=== PATIENT | female | born 2000 | race Caucasian/White ===

== ENCOUNTER 2020-05-23 22:19 | Emergency (ER) | payer SELFPAY ==
[~2020-05-23] VITALS: Ht 167.6 cm; Wt 76.4 kg
[2020-05-23 22:20] VITALS: BP 141/69
== END 2020-05-23 22:59 | disposition left against medical advice (07) ==
LOC: M ED 22:19
DX: Z53.21 Procedure and treatment not carried out due to patient leaving prior to being seen by health care provider (principal)

== ENCOUNTER 2020-06-22 15:29 | Emergency (ER) | payer OTHER, SELFPAY ==
[~2020-06-22] VITALS: Ht 167.6 cm; Wt 75.2 kg
[2020-06-22] MEDS ORDERED: TOPA1TAB PO (15:39)
[2020-06-22] MEDS ORDERED: LORA-930 PO (15:39)
[2020-06-22] MEDS ORDERED: PANT20TA6 PO (15:40)
[2020-06-22 16:13] LABS: BASO % 0.5 % (0.0-1.0); EOS % 0.5 % (0.0-3.0); HEMATOCRIT 42.2 % (36.0-47.0); HEMOGLOBIN 13.5 g/dl (12.0-15.5); LYMPH # 1.8 10^3/uL (1.5-5.0); LYMPH % 23.2 % (24.0-44.0); MEAN CORPUSCULAR HEMOGLOBIN 30.4 pg (27.0-33.0); MONO # 0.6 10^3/uL (0.0-0.8); MONO % 7.7 % (2.0-8.0); NEUTROPHILS # 5.2 10^3/uL (1.5-8.5); NEUTROPHILS % 67.8 % (36.0-66.0); PLATELET COUNT, AUTOMATED 271 10^3/uL (150-450); RED BLOOD COUNT 4.44 10^6/uL (4.00-5.40); WHITE BLOOD COUNT 7.7 10^3/uL (4.0-10.0)
[2020-06-22 16:30] LABS: ERYTHROCYTE SEDIMENTATION RATE 12 mm/hr (0-20)
[2020-06-22 16:34] LABS: BLOOD UREA NITROGEN 8 MG/DL (7-18); CALCIUM LEVEL 8.8 MG/DL (8.5-10.1); CARBON DIOXIDE LEVEL 22 MEQ/L (21-32); CHLORIDE LEVEL 114 MEQ/L (98-107); CREATININE FOR GFR 0.87 MG/DL (0.55-1.30); GLUCOSE, FASTING 82 MG/DL (70-100); SODIUM LEVEL 142 MEQ/L (136-145)
[2020-06-22] MEDS ORDERED: METOCLOPRAMIDE INJ 10MG/2ML VIAL (J2765 PER 1) IV ONE (17:15)
[2020-06-22] MEDS ORDERED: KETOROLAC 30 MG/ML 1ML VIAL IV ONE (17:15)
[2020-06-22] MEDS ORDERED: ACETAMINOPHEN 325 MG TAB PO ONE (17:15)
[2020-06-22] MEDS ORDERED: NS 1,000 ML IV ONE (17:15)
[2020-06-22 19:23] VITALS: BP 115/69
== END 2020-06-22 19:31 | disposition home or self-care (01) ==
LOC: M ED 15:29
DX: G43.909 Migraine, unspecified, not intractable, without status migrainosus (principal); J45.909 Unspecified asthma, uncomplicated; F33.9 Major depressive disorder, recurrent, unspecified; F41.9 Anxiety disorder, unspecified; K21.9 Gastro-esophageal reflux disease without esophagitis; Z79.899 Other long term (current) drug therapy; Z91.018 Allergy to other foods
CPT/HCPCS: 36415; 80048; 83735; 84702; 85025; 85652; 96361; 96374; 96375; 99284; J1885; J2765

== ENCOUNTER → 2020-06-25 | Outpatient (REF) | payer OTHER ==
[~2020-06-25] MED LIST: LORA-930 PO; PANT20TA6 PO; TOPA1TAB PO
[2020-06-25 14:10] LABS: HEMATOCRIT 43.4 % (36.0-47.0); MEAN CORPUSCULAR HEMOGLOBIN 30.4 pg (27.0-33.0); MEAN CORPUSCULAR HGB CONC 32.3 g/dl (32.0-36.5); MEAN CORPUSCULAR VOLUME 94.3 fl (80.0-96.0); PLATELET COUNT, AUTOMATED 270 10^3/uL (150-450); WHITE BLOOD COUNT 7.6 10^3/uL (4.0-10.0)
[2020-06-25 14:38] LABS: ALT/SGPT 22 U/L (12-78); BILIRUBIN,TOTAL 0.5 MG/DL (0.2-1.0); BLOOD UREA NITROGEN 17 MG/DL (7-18); CALCIUM LEVEL 9.4 MG/DL (8.5-10.1); CARBON DIOXIDE LEVEL 26 MEQ/L (21-32); CHLORIDE LEVEL 109 MEQ/L (98-107); CHOLESTEROL LEVEL 162 MG/DL (<200); CREATININE FOR GFR 0.89 MG/DL (0.55-1.30); GLUCOSE, FASTING 79 MG/DL (70-100); HDL CHOLESTEROL 40 MG/DL (>40); NON-HDL-C 122 MG/DL; POTASSIUM SERUM 4.1 MEQ/L (3.5-5.1); SODIUM LEVEL 141 MEQ/L (136-145); TRIGLYCERIDES LEVEL 91 MG/DL (<150)
[2020-06-25 14:39] LABS: ALBUMIN 4.3 GM/DL (3.2-5.2); LDL CHOLESTEROL 104 MG/DL (<100); TOTAL 25(OH) VITAMIN D 20.2 NG/ML (30.0-100.0); TOTAL PROTEIN 7.9 GM/DL (6.4-8.2)
== END ==
LOC: M SFHCPLAZ 11:58
PROVIDERS: ATTEND Physician Assistant
DX: K21.00 Gastro-esophageal reflux disease with esophagitis, without bleeding (principal); Z00.00 Encounter for general adult medical examination without abnormal findings; Z13.220 Encounter for screening for lipoid disorders

== ENCOUNTER 2020-06-30 19:15 | Emergency (ER) | payer OTHER ==
[~2020-06-30] VITALS: Ht 167.6 cm; Wt 80.0 kg
[2020-06-30 19:26] VITALS: BP 118/76
--- NOTE | 2020-06-30 21:47 | REPVR ---
PROCEDURE INFORMATION: Exam: XR Left Ankle Exam date and time: 06/30/2020 7:59 PM Age: 19 years old Clinical indication: Pain; Ankle; Left; Additional info: Left ankle injury TECHNIQUE: Imaging protocol: XR Left ankle. Views: 3 or more views. COMPARISON: No relevant prior studies available. FINDINGS: Bones/joints: There is no fracture or dislocation. The ankle mortise is symmetric. The joint spaces are preserved. No arthropathy is noted. Incidental note is made of a well corticated accessory ossicle lateral to the cuboid, which represents an os peroneum. Soft tissues: Unremarkable. IMPRESSION: No fracture or dislocation of the left ankle. Electronically signed by: Lucas Rm On 06/30/2020 21:47:18 PM
== END 2020-06-30 22:18 | disposition home or self-care (01) ==
LOC: M ED 19:15
DX: S93.402A Sprain of unspecified ligament of left ankle, initial encounter (principal); X50.9XXA Other and unspecified overexertion or strenuous movements or postures, initial encounter; Y92.018 Other place in single-family (private) house as the place of occurrence of the external cause; J45.909 Unspecified asthma, uncomplicated; F33.9 Major depressive disorder, recurrent, unspecified; F42.9 Obsessive-compulsive disorder, unspecified; F90.9 Attention-deficit hyperactivity disorder, unspecified type; Z79.899 Other long term (current) drug therapy; Z91.018 Allergy to other foods

== ENCOUNTER → 2020-07-04 | Outpatient (CLI) | payer OTHER ==
--- NOTE | 2020-07-04 12:23 | REP ---
INDICATION: N64.4 LEFT BREAST PAIN. Nonlocalized pain throughout the entire left breast. COMPARISON: None. TECHNIQUE: Whole breast ultrasound left breast. FINDINGS: Heterogeneous fibroglandular background echotexture is seen. No cyst, mass, acoustic shadowing or other suspicious sonographic finding. IMPRESSION: BI-RADS category 1-findings. Clinical follow-up is advised. <Electronically signed by Renzo Collado > 07/04/20 [id number]
== END ==
LOC: M WHC 10:45
PROVIDERS: ATTEND Physician Assistant
DX: N64.4 Mastodynia (principal)

== ENCOUNTER → 2020-07-16 | Outpatient (REF) | payer OTHER | LOC: M PLALAB 09:16 | PROVIDERS: ATTEND Obstetrics & Gynecology | DX: N91.2 Amenorrhea, unspecified (principal) ==

== ENCOUNTER 2020-10-15 23:00 | Emergency (ER) | payer OTHER ==
[~2020-10-15] VITALS: Ht 167.6 cm; Wt 77.3 kg
[2020-10-16] MEDS ORDERED: LEXA1TAB PO (02:21)
[2020-10-16] MEDS ORDERED: TOPI25TA10 PO (02:21)
[2020-10-16] MEDS ORDERED: HYDR-3363 PO (02:21)
[2020-10-16] MEDS ORDERED: IBUP80TA PO (02:21)
[2020-10-16] MEDS ORDERED: CYCL-707 PO (03:43)
[2020-10-16] MEDS ORDERED: PRED20TA PO (03:43)
[2020-10-16] MEDS ORDERED: CYCLOBENZAPRINE 10MG TABLET PO ONE (03:45)
[2020-10-16] MEDS ORDERED: predniSONE 20 MG TAB PO ONE (03:45)
[2020-10-16 04:17] VITALS: BP 128/56
== END 2020-10-16 04:22 | disposition home or self-care (01) ==
LOC: M ED 23:00
DX: O26.891 Other specified pregnancy related conditions, first trimester (principal); M54.5 Low back pain; Z3A.01 Less than 8 weeks gestation of pregnancy; Z91.018 Allergy to other foods
CPT/HCPCS: 81001; 99283; J7512

== ENCOUNTER 2020-10-19 16:56 | Emergency (ER) | payer OTHER ==
[~2020-10-19] VITALS: Ht 167.6 cm; Wt 84.9 kg
[2020-10-19 19:16] VITALS: BP 141/93
== END 2020-10-19 19:36 | disposition home or self-care (01) ==
LOC: M ED 19:05
DX: O20.9 Hemorrhage in early pregnancy, unspecified (principal); Z3A.01 Less than 8 weeks gestation of pregnancy; O10.011 Pre-existing essential hypertension complicating pregnancy, first trimester; O99.511 Diseases of the respiratory system complicating pregnancy, first trimester; J45.909 Unspecified asthma, uncomplicated; O99.611 Diseases of the digestive system complicating pregnancy, first trimester; K21.9 Gastro-esophageal reflux disease without esophagitis; O99.011 Anemia complicating pregnancy, first trimester; O99.341 Other mental disorders complicating pregnancy, first trimester; F33.9 Major depressive disorder, recurrent, unspecified; F41.9 Anxiety disorder, unspecified; O99.210 Obesity complicating pregnancy, unspecified trimester

== ENCOUNTER → 2020-10-19 | Outpatient (REF) | payer OTHER ==
[~2020-10-19] MED LIST changes: +CYCL-707 PO; +HYDR-3363 PO; +IBUP80TA PO; +LEXA1TAB PO; +PRED20TA PO; +TOPI25TA10 PO
== END ==
LOC: M PLALAB 16:26
PROVIDERS: ATTEND Specialist
DX: N92.6 Irregular menstruation, unspecified (principal)

== ENCOUNTER → 2020-10-19 | Outpatient (CLI) | payer OTHER | LOC: M LAB 16:48 | PROVIDERS: ATTEND Specialist | DX: Z53.8 Procedure and treatment not carried out for other reasons (principal) ==

== ENCOUNTER → 2020-10-22 | Outpatient (CLI) | payer OTHER | LOC: M PLALAB 11:22 | PROVIDERS: ATTEND Physician Assistant | DX: O20.9 Hemorrhage in early pregnancy, unspecified (principal) ==

== ENCOUNTER → 2021-06-10 | Outpatient (REF) | payer OTHER | LOC: M PLALAB 10:12 | PROVIDERS: ATTEND Obstetrics & Gynecology | DX: Z34.91 Encounter for supervision of normal pregnancy, unspecified, first trimester (principal) ==

== ENCOUNTER 2021-06-29 18:49 | Emergency (ER) | payer OTHER ==
[~2021-06-29] VITALS: Ht 170.2 cm; Wt 89.0 kg
[2021-06-29 18:50] VITALS: BP 134/79
[2021-06-29 21:14] LABS: APPEARANCE, URINE HAZY (CLEAR); BACTERIA, URINE AUTO 2+ (NEGATIVE); BILIRUBIN, URINE AUTO NEGATIVE (NEGATIVE); BLOOD, URINE BLOOD NEGATIVE (NEGATIVE); COLOR, URINE AMBER (YELLOW); GLUCOSE, URINE (UA) AUTO NEGATIVE (NEGATIVE); KETONE, URINE AUTO 1+ mg/dL (NEGATIVE); LEUKOCYTE ESTERASE, URINE AUTO NEGATIVE (NEGATIVE); MUCUS, URINE LARGE (NEGATIVE); NITRITE, URINE AUTO POSITIVE (NEGATIVE); PROTEIN, URINE AUTO 1+ mg/dL (NEGATIVE); RBC, URINE AUTO 1 /HPF (0-3); SPECIFIC GRAVITY URINE AUTO 1.028 (1.002-1.035); SQUAMOUS EPITHELIAL CELL UR AU 2 /HPF (0-6); UROBILINOGEN, URINE AUTO 0.2 mg/dL (0.0-2.0); WBC, URINE AUTO 3 /HPF (0-3)
== END 2021-06-29 21:24 | disposition home or self-care (01) ==
LOC: M ED 18:49
DX: O26.92 Pregnancy related conditions, unspecified, second trimester (principal); R10.2 Pelvic and perineal pain; Z3A.14 14 weeks gestation of pregnancy

== ENCOUNTER → 2021-07-10 | Outpatient (REF) | payer OTHER ==
[~2021-07-10] MED LIST changes: +ACET-683 PO; +AUGM875T28 PO; +CLAR10CA3 PO; +IBUP1TAB5 PO; +KEPP250T5 PO; +ONDA4TAB6 PO; +PREN1CHW PO
== END ==
LOC: M SFHCWAGY 13:03
PROVIDERS: ATTEND Obstetrics & Gynecology
DX: Z34.92 Encounter for supervision of normal pregnancy, unspecified, second trimester (principal)
CPT/HCPCS: 87086; G0463

== ENCOUNTER 2021-08-30 15:34 | Outpatient (CLI) | payer OTHER ==
[~2021-08-30] VITALS: Ht 167.6 cm; Wt 94.0 kg
[2021-08-30 16:00] VITALS: BP 113/76
[2021-08-30] MEDS ORDERED: HOME MED LIST COMPLETE! XX SCH (16:05)
[2021-08-30 16:31] LABS: HEMATOCRIT 30.5 % (36.0-47.0); HEMOGLOBIN 10.4 g/dl (12.0-15.5); MEAN CORPUSCULAR HEMOGLOBIN 31.6 pg (27.0-33.0); MEAN CORPUSCULAR HGB CONC 34.1 g/dl (32.0-36.5); MEAN CORPUSCULAR VOLUME 92.7 fl (80.0-96.0); PLATELET COUNT, AUTOMATED 197 10^3/uL (150-450); RED BLOOD COUNT 3.29 10^6/uL (4.00-5.40)
== END 2021-08-30 18:27 | disposition home or self-care (01) ==
LOC: M LDO 15:34
PROVIDERS: ATTEND Specialist
DX: O26.892 Other specified pregnancy related conditions, second trimester (principal); R42 Dizziness and giddiness; R04.0 Epistaxis; M79.604 Pain in right leg; Z3A.23 23 weeks gestation of pregnancy
CPT/HCPCS: 36415; 85027; 93971; G0463

== ENCOUNTER → 2021-09-02 | Outpatient (CLI) | payer OTHER ==
[2021-09-02 16:27] LABS: HEMATOCRIT 33.4 % (36.0-47.0); HEMOGLOBIN 11.1 g/dl (12.0-15.5); MEAN CORPUSCULAR HEMOGLOBIN 31.1 pg (27.0-33.0); MEAN CORPUSCULAR HGB CONC 33.2 g/dl (32.0-36.5); MEAN CORPUSCULAR VOLUME 93.6 fl (80.0-96.0); PLATELET COUNT, AUTOMATED 226 10^3/uL (150-450); RED BLOOD COUNT 3.57 10^6/uL (4.00-5.40); WHITE BLOOD COUNT 12.4 10^3/uL (4.0-10.0)
[2021-09-02 17:56] LABS: GC DNA AMPLIFICATION NEGATIVE (NEGATIVE)
== END ==
LOC: M PLALAB 13:25
PROVIDERS: ATTEND Obstetrics & Gynecology
DX: Z34.82 Encounter for supervision of other normal pregnancy, second trimester (principal)

== ENCOUNTER 2021-09-17 06:24 | Outpatient (CLI) | payer OTHER ==
[~2021-09-17] VITALS: Ht 167.6 cm; Wt 95.0 kg
[2021-09-17] MEDS ORDERED: HOME MED LIST COMPLETE! XX SCH (07:10)
[2021-09-17] MEDS ORDERED: TERCONAZOLE-7 VAGINAL CREAM PV SCH (09:00)
== END 2021-09-17 08:46 | disposition home or self-care (01) ==
LOC: M LDO 06:24
PROVIDERS: ATTEND Specialist
DX: O26.892 Other specified pregnancy related conditions, second trimester (principal); R25.2 Cramp and spasm; O36.4XX9 Maternal care for intrauterine death, other fetus; O23.592 Infection of other part of genital tract in pregnancy, second trimester; B37.9 Candidiasis, unspecified; Z3A.35 35 weeks gestation of pregnancy
CPT/HCPCS: 59025; G0378; G0463

== ENCOUNTER → 2021-09-19 | Outpatient (CLI) | payer OTHER | LOC: M WHC 07:32 | PROVIDERS: ATTEND Advanced Practice Midwife | DX: Z34.82 Encounter for supervision of other normal pregnancy, second trimester (principal) ==

== ENCOUNTER 2021-09-22 19:19 | Outpatient (CLI) | payer OTHER ==
[~2021-09-22] VITALS: Ht 167.6 cm; Wt 95.0 kg
[2021-09-22 19:30] VITALS: BP 115/66
[2021-09-22] MEDS ORDERED: HOME MED LIST COMPLETE! XX SCH (19:35)
[2021-09-22 20:10] LABS: APPEARANCE, URINE CLOUDY (CLEAR); BACTERIA, URINE AUTO 2+ (NEGATIVE); BILIRUBIN, URINE AUTO 1+ (NEGATIVE); BLOOD, URINE BLOOD NEGATIVE (NEGATIVE); COLOR, URINE AMBER (YELLOW); GLUCOSE, URINE (UA) AUTO NEGATIVE (NEGATIVE); KETONE, URINE AUTO TRACE mg/dL (NEGATIVE); LEUKOCYTE ESTERASE, URINE AUTO 1+ (NEGATIVE); MUCUS, URINE LARGE (NEGATIVE); NITRITE, URINE AUTO NEGATIVE (NEGATIVE); PROTEIN, URINE AUTO 2+ mg/dL (NEGATIVE); RBC, URINE AUTO 1 /HPF (0-3); SPECIFIC GRAVITY URINE AUTO 1.032 (1.002-1.035); SQUAMOUS EPITHELIAL CELL UR AU 40 /HPF (0-6); WBC, URINE AUTO 7 /HPF (0-3)
[2021-09-22 20:58] VITALS: BP 131/60
[2021-09-22 21:08] LABS: APPEARANCE, URINE HAZY (CLEAR); BACTERIA, URINE AUTO NEGATIVE (NEGATIVE); BILIRUBIN, URINE AUTO NEGATIVE (NEGATIVE); BLOOD, URINE BLOOD NEGATIVE (NEGATIVE); COLOR, URINE YELLOW (YELLOW); GLUCOSE, URINE (UA) AUTO NEGATIVE (NEGATIVE); KETONE, URINE AUTO TRACE mg/dL (NEGATIVE); LEUKOCYTE ESTERASE, URINE AUTO NEGATIVE (NEGATIVE); MUCUS, URINE SMALL (NEGATIVE); NITRITE, URINE AUTO NEGATIVE (NEGATIVE); PROTEIN, URINE AUTO 1+ mg/dL (NEGATIVE); RBC, URINE AUTO 0 /HPF (0-3); SPECIFIC GRAVITY URINE AUTO 1.027 (1.002-1.035); SQUAMOUS EPITHELIAL CELL UR AU 5 /HPF (0-6); WBC, URINE AUTO 1 /HPF (0-3)
== END 2021-09-22 21:47 | disposition home or self-care (01) ==
LOC: M LDO 19:19
PROVIDERS: ATTEND Advanced Practice Midwife
DX: O26.892 Other specified pregnancy related conditions, second trimester (principal); R10.2 Pelvic and perineal pain; N89.8 Other specified noninflammatory disorders of vagina; E86.0 Dehydration; O99.282 Endocrine, nutritional and metabolic diseases complicating pregnancy, second trimester; Z3A.26 26 weeks gestation of pregnancy
CPT/HCPCS: 59025; 76815; 76817; 81001; 87088; 87186; G0378; G0463

== ENCOUNTER 2021-09-26 23:15 | Outpatient (CLI) | payer OTHER ==
[~2021-09-26] VITALS: Ht 167.6 cm; Wt 97.1 kg
[2021-09-26] MEDS ORDERED: cefTRIAXone SOD 1 GM in D5W MINI-BAG PLUS 50 ML IV ONE (23:45)
[2021-09-27 00:24] VITALS: BP 105/72
== END 2021-09-27 01:00 | disposition home or self-care (01) ==
LOC: M LDO 23:15
PROVIDERS: ATTEND Advanced Practice Midwife
DX: O26.892 Other specified pregnancy related conditions, second trimester (principal); O26.852 Spotting complicating pregnancy, second trimester; O99.342 Other mental disorders complicating pregnancy, second trimester; F41.8 Other specified anxiety disorders; Z3A.27 27 weeks gestation of pregnancy
CPT/HCPCS: 59025; 96365; G0463; J0696

== ENCOUNTER → 2021-09-29 | Outpatient (REF) | payer OTHER | LOC: M SFHCWAGY 12:48 | PROVIDERS: ATTEND Obstetrics & Gynecology | DX: O09.292 Supervision of pregnancy with other poor reproductive or obstetric history, second trimester (principal) ==

== ENCOUNTER 2021-10-04 18:28 | Outpatient (CLI) | payer OTHER ==
[~2021-10-04] VITALS: Ht 167.6 cm; Wt 97.2 kg
[2021-10-04 18:42] VITALS: BP 103/75
[2021-10-04] MEDS ORDERED: PRIL20TA2 PO (18:47)
[2021-10-04] MEDS ORDERED: HOME MED LIST COMPLETE! XX SCH (19:05)
== END 2021-10-04 19:40 | disposition home or self-care (01) ==
LOC: M LDO 18:28
PROVIDERS: ATTEND Specialist
DX: O26.893 Other specified pregnancy related conditions, third trimester (principal); N89.8 Other specified noninflammatory disorders of vagina; O99.343 Other mental disorders complicating pregnancy, third trimester; F41.9 Anxiety disorder, unspecified; Z3A.28 28 weeks gestation of pregnancy
CPT/HCPCS: 59025; G0463

== ENCOUNTER → 2021-10-17 | Outpatient (CLI) | payer OTHER ==
[~2021-10-17] MED LIST changes: +PRIL20TA2 PO
== END ==
LOC: M RAD 11:29
PROVIDERS: ATTEND Obstetrics & Gynecology
DX: O09.292 Supervision of pregnancy with other poor reproductive or obstetric history, second trimester (principal); O99.012 Anemia complicating pregnancy, second trimester; D64.9 Anemia, unspecified; O23.42 Unspecified infection of urinary tract in pregnancy, second trimester; O09.892 Supervision of other high risk pregnancies, second trimester; B95.1 Streptococcus, group B, as the cause of diseases classified elsewhere; Z3A.27 27 weeks gestation of pregnancy

== ENCOUNTER 2021-10-18 20:38 | Outpatient (CLI) | payer OTHER ==
[~2021-10-18] VITALS: Ht 167.6 cm; Wt 99.3 kg
[2021-10-18 20:52] VITALS: BP 126/74
[2021-10-18 22:53] VITALS: BP 138/85
[2021-10-19 01:02] LABS: GC DNA AMPLIFICATION NEGATIVE (NEGATIVE)
== END 2021-10-18 23:00 | disposition home or self-care (01) ==
LOC: M LDO 20:38
PROVIDERS: ATTEND Obstetrics & Gynecology
DX: O60.03 Preterm labor without delivery, third trimester (principal); O26.893 Other specified pregnancy related conditions, third trimester; R10.2 Pelvic and perineal pain; R25.2 Cramp and spasm; Z3A.30 30 weeks gestation of pregnancy
CPT/HCPCS: 59025; 76815; 87810; 87850; G0463

== ENCOUNTER → 2021-10-22 | Outpatient (REF) | payer OTHER ==
[~2021-10-22] MED LIST changes: +OMEP-173 PO
== END ==
LOC: M LAB REF 16:11
PROVIDERS: ATTEND Physician Assistant
DX: R07.0 Pain in throat (principal); R68.83 Chills (without fever)

== ENCOUNTER 2021-10-23 15:43 | Outpatient (CLI) | payer OTHER ==
[~2021-10-23] VITALS: Ht 167.6 cm; Wt 120.0 kg
[~2021-10-23 15:43] MED LIST changes: -OMEP-173 PO
[2021-10-23 15:52] VITALS: BP 129/67
[2021-10-23] MEDS ORDERED: OMEP-173 PO (16:15)
[2021-10-23] MEDS ORDERED: HOME MED LIST COMPLETE! XX SCH (16:20)
[2021-10-23 17:18] VITALS: BP 119/73
[2021-10-23] MEDS ORDERED: ACETAMINOPHEN 500 MG TAB PO ONE (19:40)
[2021-10-23 20:38] VITALS: BP 127/73
[2021-10-23] MEDS ORDERED: NIRMATRELVIR/RITONAVIR CO-PACK (EMERGENCY USE AUTH) PO SCH ×2 (21:00)
== END 2021-10-23 21:05 | disposition home or self-care (01) ==
LOC: M LDO 15:43
PROVIDERS: ATTEND Obstetrics & Gynecology
DX: O98.513 Other viral diseases complicating pregnancy, third trimester (principal); U07.1 COVID-19; Z3A.31 31 weeks gestation of pregnancy
CPT/HCPCS: 59025; 87426; G0463

== ENCOUNTER → 2021-11-03 | Outpatient (CLI) | payer OTHER ==
[~2021-11-03] MED LIST changes: +OMEP-173 PO
== END ==
LOC: M RAD 10:05
PROVIDERS: ATTEND Obstetrics & Gynecology
DX: O09.293 Supervision of pregnancy with other poor reproductive or obstetric history, third trimester (principal); Z3A.32 32 weeks gestation of pregnancy

== ENCOUNTER → 2021-11-06 | Outpatient (CLI) | payer OTHER ==
[2021-11-06 15:58] LABS: HEMATOCRIT 29.1 % (36.0-47.0); HEMOGLOBIN 9.4 g/dl (12.0-15.5); MEAN CORPUSCULAR HEMOGLOBIN 29.2 pg (27.0-33.0); MEAN CORPUSCULAR HGB CONC 32.3 g/dl (32.0-36.5); MEAN CORPUSCULAR VOLUME 90.4 fl (80.0-96.0); PLATELET COUNT, AUTOMATED 221 10^3/uL (150-450); RED BLOOD COUNT 3.22 10^6/uL (4.00-5.40); WHITE BLOOD COUNT 11.1 10^3/uL (4.0-10.0)
== END ==
LOC: M PLALAB 14:07
PROVIDERS: ATTEND Obstetrics & Gynecology
DX: O99.013 Anemia complicating pregnancy, third trimester (principal)

== ENCOUNTER 2021-11-08 22:14 | Outpatient (CLI) | payer OTHER ==
[~2021-11-08] VITALS: Ht 167.6 cm; Wt 99.9 kg
[2021-11-08 22:33] VITALS: BP 144/83
[2021-11-08 22:59] LABS: APPEARANCE, URINE CLEAR (CLEAR); BACTERIA, URINE AUTO 1+ (NEGATIVE); BILIRUBIN, URINE AUTO NEGATIVE (NEGATIVE); BLOOD, URINE BLOOD NEGATIVE (NEGATIVE); COLOR, URINE YELLOW (YELLOW); GLUCOSE, URINE (UA) AUTO NEGATIVE (NEGATIVE); KETONE, URINE AUTO TRACE mg/dL (NEGATIVE); LEUKOCYTE ESTERASE, URINE AUTO NEGATIVE (NEGATIVE); MUCUS, URINE SMALL (NEGATIVE); NITRITE, URINE AUTO NEGATIVE (NEGATIVE); PROTEIN, URINE AUTO NEGATIVE (NEGATIVE); RBC, URINE AUTO 0 /HPF (0-3); SPECIFIC GRAVITY URINE AUTO 1.015 (1.002-1.035); SQUAMOUS EPITHELIAL CELL UR AU 1 /HPF (0-6); UROBILINOGEN, URINE AUTO 0.2 mg/dL (0.0-2.0); WBC, URINE AUTO 1 /HPF (0-3)
[2021-11-08 23:17] VITALS: BP 146/99
[2021-11-08 23:34] VITALS: BP 134/89
[2021-11-09 00:06] VITALS: BP 147/106
[2021-11-09 00:43] VITALS: BP 132/86
[2021-11-09] MEDS ORDERED: cefTRIAXone SOD 1 GM in D5W MINI-BAG PLUS 50 ML IV ONE (01:00)
[2021-11-09 01:06] LABS: HEMATOCRIT 28.9 % (36.0-47.0); HEMOGLOBIN 9.4 g/dl (12.0-15.5); MEAN CORPUSCULAR HEMOGLOBIN 28.9 pg (27.0-33.0); MEAN CORPUSCULAR HGB CONC 32.5 g/dl (32.0-36.5); MEAN CORPUSCULAR VOLUME 88.9 fl (80.0-96.0); PLATELET COUNT, AUTOMATED 218 10^3/uL (150-450); RED BLOOD COUNT 3.25 10^6/uL (4.00-5.40); WHITE BLOOD COUNT 10.8 10^3/uL (4.0-10.0)
[2021-11-09 01:27] LABS: TOTAL PROTEIN,RANDOM URINE 16.1 MG/DL (0.0-12.0)
[2021-11-09 01:50] LABS: ALT/SGPT 18 U/L (12-78); BILIRUBIN,TOTAL 0.3 MG/DL (0.2-1.0); CREATININE FOR GFR 0.63 MG/DL (0.55-1.30); GLOMERULAR FILTRATION RATE > 60.0 (>60); LDH LACTATE DEHYDROGENASE 157 U/L (84-246); URIC ACID 4.6 MG/DL (2.6-6.0)
[2021-11-09 02:26] LABS: GC DNA AMPLIFICATION NEGATIVE (NEGATIVE)
== END 2021-11-09 02:47 | disposition home or self-care (01) ==
LOC: M LDO 22:14
PROVIDERS: ATTEND Obstetrics & Gynecology
DX: O26.893 Other specified pregnancy related conditions, third trimester (principal); R10.2 Pelvic and perineal pain; O26.853 Spotting complicating pregnancy, third trimester; O98.913 Unspecified maternal infectious and parasitic disease complicating pregnancy, third trimester; Z3A.33 33 weeks gestation of pregnancy
CPT/HCPCS: 59025; 81001; 82247; 82565; 82570; 83615; 84156; 84450; 84460; 84550; 85027; 87661; 87810; 87850; 96365; G0463; J0696

== ENCOUNTER 2021-11-17 23:44 | Outpatient (CLI) | payer OTHER ==
[~2021-11-17] VITALS: Ht 167.6 cm; Wt 101.7 kg
[2021-11-18 00:07] VITALS: BP 131/83
[2021-11-18] MEDS ORDERED: OMEPRAZOLE 20MG CAP PO ONE (00:40)
[2021-11-18 00:57] LABS: APPEARANCE, URINE HAZY (CLEAR); BACTERIA, URINE AUTO NEGATIVE (NEGATIVE); BILIRUBIN, URINE AUTO NEGATIVE (NEGATIVE); BLOOD, URINE BLOOD NEGATIVE (NEGATIVE); COLOR, URINE YELLOW (YELLOW); GLUCOSE, URINE (UA) AUTO NEGATIVE (NEGATIVE); KETONE, URINE AUTO NEGATIVE (NEGATIVE); LEUKOCYTE ESTERASE, URINE AUTO NEGATIVE (NEGATIVE); MUCUS, URINE SMALL (NEGATIVE); NITRITE, URINE AUTO NEGATIVE (NEGATIVE); PROTEIN, URINE AUTO 1+ mg/dL (NEGATIVE); RBC, URINE AUTO 0 /HPF (0-3); SPECIFIC GRAVITY URINE AUTO 1.021 (1.002-1.035); SQUAMOUS EPITHELIAL CELL UR AU 2 /HPF (0-6); WBC, URINE AUTO 1 /HPF (0-3)
== END 2021-11-18 01:07 | disposition home or self-care (01) ==
LOC: M LDO 23:44
PROVIDERS: ATTEND Advanced Practice Midwife
DX: O26.853 Spotting complicating pregnancy, third trimester (principal); O26.893 Other specified pregnancy related conditions, third trimester; R25.2 Cramp and spasm; W01.10XA Fall on same level from slipping, tripping and stumbling with subsequent striking against unspecified object, initial encounter; Y92.9 Unspecified place or not applicable; Y93.9 Activity, unspecified; Y99.9 Unspecified external cause status; Z3A.34 34 weeks gestation of pregnancy
CPT/HCPCS: 59025; 81001; 87086; G0378; G0463

== ENCOUNTER 2021-11-22 20:11 | Outpatient (CLI) | payer OTHER ==
[~2021-11-22] VITALS: Ht 167.6 cm; Wt 101.4 kg
[2021-11-22 20:32] VITALS: BP 120/61
[2021-11-23 00:02] VITALS: BP 131/63
== END 2021-11-23 00:25 | disposition home or self-care (01) ==
LOC: M LDO 20:11
PROVIDERS: ATTEND Obstetrics & Gynecology
DX: O60.03 Preterm labor without delivery, third trimester (principal); O99.013 Anemia complicating pregnancy, third trimester; D50.9 Iron deficiency anemia, unspecified; Z86.16 Personal history of COVID-19; Z3A.35 35 weeks gestation of pregnancy
CPT/HCPCS: 59025; G0463

== ENCOUNTER 2021-11-25 08:35 | Outpatient (CLI) | payer OTHER ==
[~2021-11-25] VITALS: Ht 167.6 cm; Wt 101.7 kg
[~2021-11-25 08:35] MED LIST changes: +IRON SUCROSE 500 MG in NS 250 ML OVER 4 HRS IV ONE
[2021-11-25 08:49] VITALS: BP 144/104
[2021-11-25 09:25] VITALS: BP 134/91
[2021-11-25 12:24] VITALS: BP 130/87
== END 2021-11-25 12:20 | disposition home or self-care (01) ==
LOC: M INFU 08:35
PROVIDERS: ATTEND Obstetrics & Gynecology
DX: D64.9 Anemia, unspecified (principal)
CPT/HCPCS: 96365; 96366; J1756

== ENCOUNTER → 2021-11-26 | Outpatient (REF) | payer OTHER ==
[~2021-11-26] MED LIST changes: -IRON SUCROSE 500 MG in NS 250 ML OVER 4 HRS IV ONE
== END ==
LOC: M SFHCWAGY 12:54
PROVIDERS: ATTEND Obstetrics & Gynecology
DX: O09.293 Supervision of pregnancy with other poor reproductive or obstetric history, third trimester (principal)

== ENCOUNTER 2021-11-27 14:20 | Outpatient (CLI) | payer OTHER ==
[~2021-11-27] VITALS: Ht 167.6 cm; Wt 103.4 kg
[2021-11-27 14:31] VITALS: BP 126/81
[2021-11-27] MEDS ORDERED: HOME MED LIST COMPLETE! XX SCH (14:35)
== END 2021-11-27 17:30 | disposition home or self-care (01) ==
LOC: M LDO 14:20
PROVIDERS: ATTEND Obstetrics & Gynecology
DX: O47.03 False labor before 37 completed weeks of gestation, third trimester (principal); O99.013 Anemia complicating pregnancy, third trimester; D64.9 Anemia, unspecified; Z86.16 Personal history of COVID-19; Z3A.36 36 weeks gestation of pregnancy
CPT/HCPCS: 59025; 93971; G0463

== ENCOUNTER 2021-11-30 20:21 | Outpatient (CLI) | payer OTHER ==
[~2021-11-30] VITALS: Ht 167.6 cm; Wt 103.6 kg
[2021-11-30 20:41] VITALS: BP 117/71
[2021-11-30] MEDS ORDERED: HOME MED LIST COMPLETE! XX SCH (21:00)
== END 2021-11-30 23:38 | disposition home or self-care (01) ==
LOC: M LDO 20:21
PROVIDERS: ATTEND Obstetrics & Gynecology
DX: O47.03 False labor before 37 completed weeks of gestation, third trimester (principal); O26.893 Other specified pregnancy related conditions, third trimester; R10.2 Pelvic and perineal pain; Z3A.36 36 weeks gestation of pregnancy
CPT/HCPCS: 59025; G0463

== ENCOUNTER 2021-12-02 16:45 | Outpatient (CLI) | payer OTHER ==
[~2021-12-02] VITALS: Ht 167.6 cm; Wt 104.2 kg
[2021-12-02 17:03] VITALS: BP 136/83
[2021-12-02] MEDS ORDERED: HOME MED LIST COMPLETE! XX SCH (17:10)
== END 2021-12-02 18:06 | disposition home or self-care (01) ==
LOC: M LDO 16:45
PROVIDERS: ATTEND Obstetrics & Gynecology
DX: O26.893 Other specified pregnancy related conditions, third trimester (principal); Z3A.36 36 weeks gestation of pregnancy; Z71.1 Person with feared health complaint in whom no diagnosis is made
CPT/HCPCS: 59025; G0463

== ENCOUNTER 2021-12-04 12:03 | Outpatient (CLI) | payer OTHER ==
[~2021-12-04] VITALS: Ht 167.6 cm; Wt 104.3 kg
[2021-12-04] MEDS ORDERED: HOME MED LIST COMPLETE! XX SCH (12:50)
[2021-12-07] MEDS ORDERED: OXYC1TAB23 PO (07:10)
[2021-12-07] MEDS ORDERED: IBUP80TA PO (07:10)
== END 2021-12-04 14:45 | disposition home or self-care (01) ==
LOC: M LDO 12:03
PROVIDERS: ATTEND Specialist
DX: O26.893 Other specified pregnancy related conditions, third trimester (principal); R10.2 Pelvic and perineal pain; O99.343 Other mental disorders complicating pregnancy, third trimester; F41.9 Anxiety disorder, unspecified; F43.10 Post-traumatic stress disorder, unspecified; Z3A.37 37 weeks gestation of pregnancy
CPT/HCPCS: 59025; G0378; G0463